=== PATIENT | male | born 1975 | race Caucasian/White ===

== ENCOUNTER 2017-09-12 18:31 | Inpatient (IN) | payer SELFPAY ==
[~2017-09-12] VITALS: Ht 154.4 cm; Wt 76.2 kg
[2017-09-12 19:23] LABS: BASOPHILS % 0.2 % (0.0-1.0); EOSINOPHILS # (AUTO) 0.1 (0.0-0.4); EOSINOPHILS % 0.5 % (0.0-6.0); HEMATOCRIT 43.1 % (38.2-49.6); HEMOGLOBIN 15.4 g/dL (14.0-18.0); LYMPHOCYTES # (AUTO) 2.1 (1.0-3.2); LYMPHOCYTES % 10.5 % (18.0-39.1); MEAN CORPUSCULAR HEMOGLOBIN 30.9 pg (28-32); MEAN CORPUSCULAR HGB CONC 35.7 g/dL (31-35); MEAN CORPUSCULAR VOLUME 86.5 fL (81-99); MONOCYTES # (AUTO) 1.5 (0.2-0.8); MONOCYTES % 7.4 % (4.4-11.3); NEUTROPHILS # (AUTO) 15.8 (2.1-6.9); NEUTROPHILS % 80.8 % (38.7-80.0); PLATELET COUNT 318 x10e3/uL (140-360); RED BLOOD COUNT 4.98 x10e6/uL (4.3-5.7); RED CELL DISTRIBUTION WIDTH 12.4 % (11.7-14.4)
[2017-09-12 19:24] LABS: BILIRUBIN,URINE 1+ (NEGATIVE); CLARITY,URINE CLEAR (CLEAR); COLOR,URINE YELLOW (YELLOW); KETONES,URINE NEGATIVE (NEGATIVE); LEUKOCYTE ESTERASE ,URINE TRACE (NEGATIVE); NITRITE,URINE NEGATIVE (NEGATIVE); PROTEIN,URINE DIPSTICK 1+ (NEGATIVE); URINE UROBILINOGEN 1 mg/dL (0.2 - 1)
[2017-09-12] MEDS ORDERED: DIATRIZOATE MEGL/DIATRIZOA SOD 30 ML BTL PO ONE (19:25)
[2017-09-12 19:34] LABS: INR 1.16; PROTHROMBIN TIME 13.9 seconds (11.9-14.5)
[2017-09-12 19:35] LABS: PARTIAL THROMBOPLASTIN TIME 26.9 seconds (23.8-35.5)
[2017-09-12 19:43] LABS: ALANINE AMINOTRANSFERASE 17 IU/L (0-55); ALKALINE PHOSPHATASE 72 IU/L (40-150); AMYLASE 51 U/L (25-125); ANION GAP 11.4 mmol/L (8-16); BLOOD UREA NITROGEN 11 mg/dL (7-26); BUN/CREATININE RATIO 14 (6-25); CARBON DIOXIDE 26 mmol/L (22-29); CHLORIDE 104 mmol/L (98-107); CREATININE, SERUM 0.77 mg/dL (0.72-1.25); EST GLOMERULAR FILTRATION RATE > 60 ML/MIN (60-); GLUCOSE 123 mg/dL (74-118); LIPASE 24 U/L (8-78); MAGNESIUM 2.2 MG/DL (1.3-2.1); POTASSIUM 3.4 mmol/L (3.5-5.1); SODIUM 138 mmol/L (136-145)
[2017-09-12 19:43] LABS: BACTERIA,URINE RARE /HPF; EPITHELIAL CELLS,URINE RARE /LPF; RBC,URINE 0-5 /HPF (0-5)
[2017-09-12 19:44] LABS: CALCIUM OXALATE CRYSTALS,UR MODERATE (FEW)
[2017-09-12] MEDS ORDERED: SODIUM CHLORIDE 0.9% 1000ML 1,000 ML IV STA (21:42)
[2017-09-12] MEDS ORDERED: ONDANSETRON HCL INJ 2 MG/ML VIAL IV STA (22:03)
[2017-09-12] MEDS ORDERED: MORPHINE SULFATE 2 MG/ML SYR IV STA (22:03)
[2017-09-12] MEDS ORDERED: SODIUM CHLORIDE 0.9% 50ML 50 ML ONE (22:29)
[2017-09-12] MEDS ORDERED: IOPAMIDOL 370 MG/ML 200 ML INFUS..BTL INJ ONE (22:29)
--- NOTE | 2017-09-12 22:53 | Diagnostic Imaging Report ---
EXAM: CT ABDOMEN/PELVIS W DATE: 09/12/2017 7:13 PM INDICATION: Abdominal pain, nausea and vomiting COMPARISON: None TECHNIQUE: The abdomen and pelvis were scanned using a multidetector helical scanner. Coronal and sagittal reformations were obtained. Routine protocol performed. IV Contrast: 100 ml Isovue 370 FINDINGS: LOWER THORAX: No consolidations LIVER/BILIARY: No masses. No ductal dilatation. GALLBLADDER: Unremarkable SPLEEN: Unremarkable PANCREAS: Unremarkable ADRENALS: No nodules KIDNEYS: Several subcentimeter right renal hypodensities are too small to accurately characterize. GI TRACT: Dilated appendix (1.6 cm with areas of absent/poor wall enhancement and marked surrounding inflammatory changes. No drainable collection or abscess. No bowel obstruction. VESSELS: Unremarkable PERITONEUM/RETROPERITONEUM: Mild pelvic in right lower quadrant free fluid. LYMPH NODES: No lymphadenopathy REPRODUCTIVE ORGANS/BLADDER: Unremarkable SOFT TISSUES: Unremarkable BONES: No suspicious bone lesions. IMPRESSION: Acute appendicitis, likely gangrenous/microperforated. No evidence of abscess. Discussed with Physician: MIGUEL JIN MD at 10:45 PM on 09/12/2017 Signed by: Dr Jania Baca MD on 09/12/2017 10:50 PM
[2017-09-12] MEDS: HYDROMORPHONE 1MG/1ML INJ IV PRN (23:15)
[2017-09-12] MEDS: SODIUM CHLORIDE 0.9% 1000ML 1,000 ML IV SCH (23:18)
[2017-09-12] MEDS: PIPER-TAZ 3.375 GM 50 ML IV SCH ×2 (23:18→23:43)
[2017-09-12] MEDS: METRONIDAZOLE 500MG/NS 100ML 100 ML IV SCH ×2 (23:38→23:43)
--- OUTSIDE RECORDS SUMMARY | 2017-09-12 23:38 | XMS REPORT ---
Author Author [facility] Address Unknown Phone Unavailable Care Team Providers Care Surface Water Manager Name Role Phone MIGUEL JIN Unavailable Unavailable Problems This patient has no known problems. Allergies, Adverse Reactions, Alerts This patient has no known allergies or adverse reactions. Medications This patient has no known medications. Results Test Description Test Time Test Comments Text Results Atomic Results Result Comments CT ABDOMEN/PELVIS W [place] [address] Patient Name: KATHARINE HIGGINBOTHAM MR #: [id number] : 1975 Age/Sex: 41/M Req #: [id number] Adm Physician: Ordered by: JAY BOYER SENIOR BACK END JAVA DEVELOPER Report #: [id number] Location: ER Room/Bed: Procedure: [id number] CT/CT ABDOMEN/PELVIS W Exam Date: Exam Time: REPORT STATUS: Signed EXAM: CT ABDOMEN/PELVIS W DATE: 09/12/2017 7: 13 PM INDICATION: Abdominal pain, nausea and vomiting COMPARISON: None TECHNIQUE: The abdomen and pelvis were scanned using a multidetector helical scanner. Coronal and sagittal reformations were obtained. Routine protocol performed. IV Contrast: 100 ml Isovue 370 FINDINGS: LOWER THORAX: No consolidations LIVER/BILIARY: No masses. No ductal dilatation. GALLBLADDER: Unremarkable SPLEEN: Unremarkable PANCREAS: Unremarkable ADRENALS: No nodules KIDNEYS: Several subcentimeter right renal hypodensities are too small to accurately characterize. GI TRACT: Dilated appendix ( 1.6 cm with areas of absent/poor wall enhancement and marked surrounding inflammatory changes. No drainable collection or abscess. No bowel obstruction. VESSELS: Unremarkable PERITONEUM/RETROPERITONEUM: Mild pelvic in right lower quadrant free fluid. LYMPH NODES: No lymphadenopathy REPRODUCTIVE ORGANS/BLADDER: Unremarkable SOFT TISSUES: Unremarkable BONES: No suspicious bone lesions. IMPRESSION: Acute appendicitis, likely gangrenous/microperforated. No evidence of abscess. Discussed with Physician: MIGUEL JIN MD at 10:45 PM on 09/12/2017 Signed by: Dr Ade Baca MD on 09/12/2017 10:50 PM Dictated By: ADE BACA MD 49 Transcribed By: SUSHANT on 09/12/172249 COPY TO: JAY BOYER NP
[2017-09-13] VITALS (7 sets, daily range): BP systolic 103–148; BP diastolic 65–94
[2017-09-13] MEDS: SODIUM CHLORIDE 0.9% 1000ML 1,000 ML IV SCH ×2 (01:18→15:37)
[2017-09-13] MEDS: HYDROMORPHONE 1MG/1ML INJ IV PRN ×5 (02:17→23:00)
[2017-09-13] MEDS: PIPER-TAZ 3.375 GM 50 ML IV SCH ×3 (05:43→18:14)
[2017-09-13] MEDS: METRONIDAZOLE 500MG/NS 100ML 100 ML IV SCH ×3 (06:00→17:59)
[2017-09-13] MEDS: ONDANSETRON HCL INJ 2 MG/ML VIAL IV PRN ×2 (08:00→16:25)
[2017-09-13] MEDS ORDERED: FENTANYL CITRATE/PF 100MCG/2 ML INJ ONE ×2 (14:09→17:52)
--- NOTE | 2017-09-13 14:33 | Operative Report ---
DATE OF PROCEDURE: September 13, 2017 PREOPERATIVE DIAGNOSIS: Acute appendicitis. POSTOPERATIVE DIAGNOSIS: Acute appendicitis. OPERATION PERFORMED: Laparoscopic appendectomy. ORCHESTRA MUSICIAN: DAMARIS Hurtado. ANESTHESIA: General. COMPLICATIONS: None. ESTIMATED BLOOD LOSS: Minimal. DESCRIPTION OF PROCEDURE: With the patient lying in bed in the supine position, under good general endotracheal anesthesia, the abdomen was prepped with Betadine solution and draped in the usual manner. A Veress needle was introduced into the umbilicus, and pneumoperitoneum was established without any difficulty. A 12-mm trocar was placed into the umbilicus, and a 10-mm video laparoscope was placed into the intraabdominal cavity. Under direct vision, a 5-mm trocar was placed in the suprapubic region and another 5-mm trocar was placed in the left lower quadrant. Video laparoscopy at this point revealed an acutely inflamed, nonperforated appendix that was stuck to the lateral gutter on the right side. There was some nonpurulent fluid in the pelvis which was all aspirated. The appendix was then mobilized off of the lateral gutter. The base of the appendix was then dissected, and the base of the appendix as it joined the cecum was divided with an application of the Endo LENNY stapler. The mesentery of the appendix was then divided with an application of the Endo LENNY vascular stapler. The appendix was placed in a pouch and removed without any difficulty. Video laparoscopy was again carried out. Surgical site was inspected. There was no bleeding. The whole area was then thoroughly irrigated, and all of the excess fluid was aspirated. The pneumoperitoneum was evacuated, and all the trocars were removed under direct vision. The midline fascia at the umbilicus was then closed with a zpxmby-yy-skceg of #0 Vicryl. All layers were infiltrated on the way out with a solution of 1/4 percent Marcaine. Subcutaneous tissue was approximated with 3-0 Vicryl, and the skin was closed with subcuticular 5-0 Vicryl. Benzoin, Steri-Strips and Band-Aids were applied. The sponge, lap and needle count was correct. Patient tolerated the procedure well and returned to the recovery room in stable condition. Job#: [id number]
[2017-09-13] MEDS ORDERED: LIDOCAINE HCL 2% LOCAL INJ 5 ML SDV VIAL INJ ONE (18:29)
[2017-09-13] MEDS ORDERED: KETOROLAC TROMETHAMINE 30 MG/ML VIAL ONE (18:29)
[2017-09-13] MEDS ORDERED: PROPOFOL IV EMULSION 10 MG/ML 20 ML VIAL ONE (18:29)
[2017-09-13] MEDS ORDERED: SEVOFLURANE INHAL SOLN 250 ML PEN BTL ONE (18:29)
[2017-09-13] MEDS ORDERED: DEXAMETHASONE SOD PHOS INJ 4 MG/ML VIAL ONE (18:29)
[2017-09-13] MEDS ORDERED: ONDANSETRON HCL INJ 2 MG/ML VIAL ONE (18:29)
[2017-09-13] MEDS ORDERED: ROCURONIUM BROMIDE 10 MG/ML 5ML VIAL ONE (18:29)
[2017-09-14] VITALS: BP 110/69
[2017-09-14] MEDS: SODIUM CHLORIDE 0.9% 1000ML 1,000 ML IV SCH ×3 (00:32→14:57)
[2017-09-14] MEDS: PIPER-TAZ 3.375 GM 50 ML IV SCH ×4 (00:32→17:10)
[2017-09-14] MEDS: METRONIDAZOLE 500MG/NS 100ML 100 ML IV SCH ×4 (01:19→17:10)
[2017-09-14 04:00] VITALS: BP 100/64
[2017-09-14] MEDS: ONDANSETRON HCL INJ 2 MG/ML VIAL IV PRN (04:37)
[2017-09-14] MEDS: HYDROMORPHONE 1MG/1ML INJ IV PRN (04:37)
[2017-09-14] MEDS: HYDROCODONE/APAP 7.5MG-325MG 1 EA TAB PO PRN ×4 (06:02→17:30)
[2017-09-14 06:03] LABS: BASOPHILS % 0.1 % (0.0-1.0); EOSINOPHILS % 0.2 % (0.0-6.0); HEMOGLOBIN 12.5 g/dL (14.0-18.0); LYMPHOCYTES # (AUTO) 2.1 (1.0-3.2); LYMPHOCYTES % 13.9 % (18.0-39.1); MEAN CORPUSCULAR HEMOGLOBIN 30.9 pg (28-32); MEAN CORPUSCULAR HGB CONC 34.7 g/dL (31-35); MEAN CORPUSCULAR VOLUME 88.9 fL (81-99); MONOCYTES # (AUTO) 1.2 (0.2-0.8); MONOCYTES % 8.2 % (4.4-11.3); NEUTROPHILS # (AUTO) 11.6 (2.1-6.9); PLATELET COUNT 272 x10e3/uL (140-360); RED BLOOD COUNT 4.05 x10e6/uL (4.3-5.7); RED CELL DISTRIBUTION WIDTH 12.4 % (11.7-14.4)
[2017-09-14 06:25] LABS: ANION GAP 12.1 mmol/L (8-16); BLOOD UREA NITROGEN 7 mg/dL (7-26); BUN/CREATININE RATIO 10 (6-25); CALCIUM 8.5 mg/dL (8.4-10.2); CARBON DIOXIDE 23 mmol/L (22-29); CHLORIDE 107 mmol/L (98-107); CREATININE, SERUM 0.71 mg/dL (0.72-1.25); EST GLOMERULAR FILTRATION RATE > 60 ML/MIN (60-); GLUCOSE 104 mg/dL (74-118); POTASSIUM 4.1 mmol/L (3.5-5.1); SODIUM 138 mmol/L (136-145)
[2017-09-14 07:54] VITALS: BP 125/86
[2017-09-14 08:00] VITALS: BP 125/86
[2017-09-14] MEDS: DOCUSATE SODIUM 100 MG CAP PO SCH ×2 (09:00→16:51)
[2017-09-14 12:00] VITALS: BP 104/70
[2017-09-14 16:00] VITALS: BP 115/81
[2017-09-14] MEDS ORDERED: TYLENOL WITH C1 EACH PO (19:16)
[2017-09-14] MEDS ORDERED: KEFLEX500 MG (19:17)
== END 2017-09-14 19:42 | disposition home or self-care (01) | DRG 343 ==
LOC: ER 18:31 → ERHOLD 23:35 → MED/SURG2 09-13 00:42
PROVIDERS: ADMIT Surgery; ATTEND Surgery
PROC: 0DTJ4ZZ Resection of Appendix, Percutaneous Endoscopic Approach (ICD-10-PCS; principal; 2017-09-13 14:30)
DX: K35.80 Unspecified acute appendicitis (principal); D72.820 Lymphocytosis (symptomatic)
CPT/HCPCS: 36415; 74177; 80048; 80053; 81001; 82150; 83690; 83735; 85025; 85610; 85730; 88304; 99284; C1766; J1100; J1170; J1885; J2001; J2270; J2405; J2543; J7030; Q9967

== ENCOUNTER 2020-02-16 10:48 | Emergency (ER) | payer SELFPAY ==
[~2020-02-16] VITALS: Ht 154.4 cm; Wt 72.6 kg
[~2020-02-16 10:48] MED LIST: KEFLEX500 MG; TYLENOL WITH C1 EACH PO
--- OUTSIDE RECORDS SUMMARY | 2020-02-16 11:27 | XMS REPORT | Continuity of Care Document ---
Author Author [facility] t Organization [facility] Address [address] [place] [address] Phone Unavailable Care Team Providers Care Steel Die Printer Name Role Phone NO, PCP PCP Unavailable Js JIN Attphys Unavailable Payers Payer Name Policy Type Policy Number Effective Date Expiration Date Juan Garcia Ppo [id number] 2006 00:00:00 [facility] Problems Condition Name Condition Details Condition Category Status Onset Date Resolution Date Last Treatment Date Treating Clinician Comments Source Appendicitis Appendicitis Problem Active [facility] Allergies, Adverse Reactions, Alerts Allergy Name Allergy Type Status Severity Reaction(s) Onset Date Inacti ve Date Treating Clinician Comments Source No Known Allergies DA Active U 2012-04-24 00:00:00 [facility] Medications Ordered Medication Name Filled Medication Name Start Date Stop Da te Current Medication? Ordering Clinician Indication Dosage Frequency Signature (SIG) Comments Components Source Acetaminophen With Codeine (Tylenol With Codeine #3 Ta blet) 1 Each Tablet Acetaminophen With Codeine (Tylenol With Codeine #3 Tablet) 1 Each Tablet Yes 300 Every 4 Hours as needed for Pain [facility] Cephalexin Monohydrate (Keflex) 500 Mg Capsule Cephale robert Monohydrate (Keflex) 500 Mg Capsule Yes Three Times A Day [facility] Procedures Procedure Date / Time Performed Performing Clinician Sourjonh e Laparoscopic appendectomy 2017-09-13 00:00:00 HEMANTH DE JESUS [facility] Computed tomography of abdomen and pelvis with contrast 2017 00:00:00 JAY BOYER [facility] Encounters Start Date/Time End Date/Time Encounter Type Admission Type [facility] Care Department Encounter ID Source 2017-09-12 23:35:00 2017-09-14 19:42:00 Discharged Inpatient ER MIGUEL JIN [facility] [id number] [facility] Results Test Description Test Time Test Comments Results Result Comments Source Sodium Level 2017-09-14 06:28:00 Test Item Sodium Level (test code = 2951-2) 138 136-145 [facility] CenterPotassium Gichr4089-53-57 06:28:00* Test Item Value Reference Range Interpretation Comments Potassium Level (test code = 2823-3) 4.1 3.5-5.1 [facility] CenterChloride Mztpu1190-34-20 06:28:00* Test Item Value Reference Range Interpretation Comments Chloride Level (test code = 2075-0) 107 98-107 [facility] CenterCarbon Dioxide Tlkif8314-69-99 06:28:00* Test Item Value Reference Range Interpretation Comments Carbon Dioxide Level (test code = 2028-9) 23 22-29 [facility] CenterAnion Hop0241-78-22 06:28:00* Test Item Value Reference Range Interpretation Comments Anion Gap (test code = 64952-1) 12.1 8-16 [facility] CenterBlood Urea Vqjrjwhx9186-36-72 06:28:00* Test Item Value Reference Range Interpretation Comments Blood Urea Nitrogen (test code = 3094-0) 7 7-26 [facility] CenterCreatinine2018-03-14 06:28:00* Test Item Value Reference Range Interpretation Comments Creatinine (test code = 2160-0) 0.71 0.72-1.25 L [facility] CenterBUN/Creatinine Hloci3525-13-77 06:28:00* Test Item Value Reference Range Interpretation Comments BUN/Creatinine Ratio (test code = 3097-3) 10 6-25 [facility] CenterEstimat Glomerular Filtration Rate 2017-09-14 06:28:00* Test Item Value Reference Range Interpretation Comments Estimat Glomerular Filtration Rate (test code = 04383-1) 60- >60 Ranges were taken from the National Kidney Disease Education Program and the [employer] literature.Reference ranges:60 or greater: Tbdryg46-23 ( for 3 consecutive months): Chronic kidney disease 15 or less: Kidney failureThe [facility] of [facility] M.[facility]. Anderson Cancer CenterGlucose Pltlk3497-07-27 06:28:00* Test Item Value Reference Range Interpretation Comments Glucose Level (test code = QEC0832) 104 74-118 [facility] CenterCalcium Migdn1532-12-92 06:28:00* Test Item Value Reference Range Interpretation Comments Calcium Level (test code = 13126-2) 8.5 8.4-10.2 [facility] CenterWhite Blood Cillr4664-75-28 06:10:00* Test Item Value Reference Range Interpretation Comments White Blood Count (test code = 6690-2) 15.09 4.8-10.8 H [facility] CenterRed Blood Pvabp5725-69-37 06:10:00* Test Item Value Reference Range Interpretation Comments Red Blood Count (test code = 789-8) 4.05 4.3-5.7 L [facility] CenterHemoglobin2018-03-14 06:10:00* Test Item Value Reference Range Interpretation Comments Hemoglobin (test code = 47114-4) 12.5 14.0-18.0 L [facility] CenterHematocrit2018-03-14 06:10:00* Test Item Value Reference Range Interpretation Comments Hematocrit (test code = 4544-3) 36.0 38.2-49.6 L [facility] CenterMean Corpuscular Obrpef1234-42-34 06:10:00* Test Item Value Reference Range Interpretation Comments Mean Corpuscular Volume (test code = 787-2) 88.9 81-99 [facility] CenterMean Corpuscular Hndvrtsizp9128-92-15 06:10:00* Test Item Value Reference Range Interpretation Comments Mean Corpuscular Hemoglobin (test code = 785-6) 30.9 28-32 [facility] CenterMean Corpuscular Hemoglobin Concent 2017-09-14 06:10:00* Test Item Value Reference Range Interpretation Comments Mean Corpuscular Hemoglobin Concent (test code = 786-4) 34.7 31-35 [facility] CenterRed Cell Distribution Ojttr2551-12-74 06:10:00* Test Item Value Reference Range Interpretation Comments Red Cell Distribution Width (test code = 46535-4) 12.4 11.7 -14.4 [facility] CenterPlatelet Wlqix3918-56-91 06:10:00* Test Item Value Reference Range Interpretation Comments Platelet Count (test code = 777-3) 272 140-360 [facility] CenterNeutrophils (%) (Auto)2017-09-14 06:10:00 * Test Item Value Reference Range Interpretation Comments Neutrophils (%) (Auto) (test code = 88773-7) 77.0 38.7-80.0 [facility] CenterLymphocytes (%) (Auto)2017-09-14 06:10:00 * Test Item Value Reference Range Interpretation Comments Lymphocytes (%) (Auto) (test code = 736-9) 13.9 18.0-39.1 L [facility] CenterMonocytes (%) (Auto)2017-09-14 06:10:00* Test Item Value Reference Range Interpretation Comments Monocytes (%) (Auto) (test code = 5905-5) 8.2 4.4-11.3 [facility] CenterEosinophils (%) (Auto)2017-09-14 06:10:00 * Test Item Value Reference Range Interpretation Comments Eosinophils (%) (Auto) (test code = 713-8) 0.2 0.0-6.0 [facility] CenterBasophils (%) (Auto)2017-09-14 06:10:00* Test Item Value Reference Range Interpretation Comments Basophils (%) (Auto) (test code = 706-2) 0.1 0.0-1.0 [facility] CenterIM GRANULOCYTES %2017-09-14 06:10:00* Test Item Value Reference Range Interpretation Comments IM GRANULOCYTES % (test code = IM GRANULOCYTES %) 0.6 0.0- 1.0 [facility] CenterNeutrophils # (Auto)2017-09-14 06:10:00* Test Item Value Reference Range Interpretation Comments Neutrophils # (Auto) (test code = 751-8) 11.6 2.1-6.9 H [facility] CenterLymphocytes # (Auto)2017-09-14 06:10:00* Test Item Value Reference Range Interpretation Comments Lymphocytes # (Auto) (test code = 74556-1) 2.1 1.0-3.2 [facility] CenterMonocytes # (Auto)2017-09-14 06:10:00* Test Item Value Reference Range Interpretation Comments Monocytes # (Auto) (test code = 742-7) 1.2 0.2-0.8 H [facility] CenterEosinophils # (Auto)2017-09-14 06:10:00* Test Item Value Reference Range Interpretation Comments Eosinophils # (Auto) (test code = 711-2) 0.0 0.0-0.4 [facility] CenterBasophils # (Auto)2017-09-14 06:10:00* Test Item Value Reference Range Interpretation Comments Basophils # (Auto) (test code = 704-7) 0.0 0.0-0.1 [facility] CenterAbsolute Immature Granulocyte (auto 2017-09-14 06:10:00* Test Item Value Reference Range Interpretation Comments Absolute Immature Granulocyte (auto (hugo t code = Absolute Immature Granulocyte (auto) 0.09 0-0.1 [facility] CenterUrine HMI2289-27-02 19:44:00* Test Item Value Reference Range Interpretation Comments Urine WBC (test code = 5821-4) 6-10 0-5 H [facility] CenterUrine EQM7658-31-90 19:44:00* Test Item Value Reference Range Interpretation Comments Urine RBC (test code = 32474-2) 0-5 0-5 [facility] CenterUrine Vsocjqrr9720-63-08 19:44:00* Test Item Value Reference Range Interpretation Comments Urine Bacteria (test code = 90374-5) RARE NONE [facility] CenterUrine Epithelial Ffway7228-48-58 19:44:00 * Test Item Value Reference Range Interpretation Comments Urine Epithelial Cells (test code = 18162-6) RARE NONE [facility] CenterUrine Calcium Oxalate Hetjpqot1970-37-12 19:44:00* Test Item Value Reference Range Interpretation Comments Urine Calcium Oxalate Crystals (test code = 5774-5) MODERATE FE W H [facility] CenterMagnesium Qimge9017-87-44 19:44:00* Test Item Value Reference Range Interpretation Comments Magnesium Level (test code = 43731-0) 2.2 1.3-2.1 H [facility] CenterTotal Ephtovczf5794-82-30 19:44:00* Test Item Value Reference Range Interpretation Comments Total Bilirubin (test code = 1975-2) 0.7 0.2-1.2 [facility] Cancer CenterAspartate Amino Transf (AST/SGOT) 2017-09-12 19:44:00* Test Item Value Reference Range Interpretation Comments Aspartate Amino Transf (AST/SGOT) (test code = Aspartate Amino Transf (AST/SGOT)) 12 5-34 [facility] CenterAlanine Aminotransferase (ALT/SGPT) 2017-09-12 19:44:00* Test Item Value Reference Range Interpretation Comments Alanine Aminotransferase (ALT/SGPT) (test code = 1742-6) 17 0-55 [facility] CenterTotal Greeubm8224-30-93 19:44:00* Test Item Value Reference Range Interpretation Comments Total Protein (test code = 2885-2) 7.9 6.5-8.1 [facility] CenterAlbumin2018-03-12 19:44:00* Test Item Value Reference Range Interpretation Comments Albumin (test code = 1751-7) 4.0 3.5-5.0 [facility] CenterGlobulin2018-03-12 19:44:00* Test Item Value Reference Range Interpretation Comments Globulin (test code = 44308-1) 3.9 2.3-3.5 H [facility] CenterAlbumin/Globulin Ljfsy7183-53-72 19:44:00 * Test Item Value Reference Range Interpretation Comments Albumin/Globulin Ratio (test code = 1759-0) 1.0 0.8-2.0 [facility] CenterAlkaline Aqwcalnlhsr4901-20-57 19:44:00* Test Item Value Reference Range Interpretation Comments Alkaline Phosphatase (test code = 6768-6) 72 40-150 [facility] CenterAmylase Adygn2816-75-76 19:44:00* Test Item Value Reference Range Interpretation Comments Amylase Level (test code = 1798-8) 51 25-125 [facility] CenterLipase2018-03-12 19:44:00* Test Item Value Reference Range Interpretation Comments Lipase (test code = 3040-3) 24 8-78 [facility] CenterProthrombin Odbw9843-18-09 19:35:00* Test Item Value Reference Range Interpretation Comments Prothrombin Time (test code = 5902-2) 13.9 11.9-14.5 [facility] CenterProthromb Time International Ratio 2017-09-12 19:35:00* Test Item Value Reference Range Interpretation Comments Prothromb Time International Ratio (test code = 6301-6) 1.16 Oral Anticoagulant Therapy INR Values:1. Low Intensity Therapy 1.5 - 2.02 . Moderate Intensity Therapy 2.0 - 3.03. High Intensity Therapy(1) 2.5 - 3. 54. High Intensity Therapy(2) 3.0 - 4.05. Panic Value INR > 5.0 [facility] Cancer CenterActivated Partial Thromboplast Time 2017-09-12 19:35:00* Test Item Value Reference Range Interpretation Comments Activated Partial Thromboplast Time (test code = 74120-2) 26.9 23.8-35.5 [facility] CenterUrine Dnhpf4351-66-93 19:24:00* Test Item Value Reference Range Interpretation Comments Urine Color (test code = 5778-6) YELLOW YELLOW [facility] CenterUrine Ffjirvu3975-86-69 19:24:00* Test Item Value Reference Range Interpretation Comments Urine Clarity (test code = 08774-9) CLEAR CLEAR [facility] CenterUrine Specific Whtmjjg5212-18-40 19:24:00 * Test Item Value Reference Range Interpretation Comments Urine Specific [place] (test code = 5811-5) 1.025 1.010-1.02 5 [facility] CenterUrine uL1873-82-10 19:24:00* Test Item Value Reference Range Interpretation Comments Urine pH (test code = 74625-0) 6 5-7 [facility] CenterUrine Leukocyte Dkxnjplz3640-29-34 19:24:00* Test Item Value Reference Range Interpretation Comments Urine Leukocyte Esterase (test code = 5799-2) TRACE NEGATIVE H [facility] CenterUrine Aekvepy1457-87-86 19:24:00* Test Item Value Reference Range Interpretation Comments Urine Nitrite (test code = 17249-5) NEGATIVE NEGATIVE [facility] Eqyffox9983-10-86 19:24:00* Test Item Value Reference Range Interpretation Comments Urine Protein (test code = 5804-0) 1+ NEGATIVE H [facility] Glucose (UA)2017-09-12 19:24:00* Test Item Value Reference Range Interpretation Comments Urine Glucose (UA) (test code = 2349-9) NEGATIVE NEGATIVE [facility] CenterUrine Srgywgm0054-76-34 19:24:00* Test Item Value Reference Range Interpretation Comments Urine Ketones (test code = 38976-9) NEGATIVE NEGATIVE [facility] CenterUrine Syjljpeyheza7704-16-37 19:24:00* Test Item Value Reference Range Interpretation Comments Urine Urobilinogen (test code = 06738-6) 1 0.2-1 [facility] CenterUrine Tfeoqotrs3611-77-84 19:24:00* Test Item Value Reference Range Interpretation Comments Urine Bilirubin (test code = 1978-6) 1+ NEGATIVE H Confirmatory test currently unavailable. False positive results may occur.[facility] Tqtof3974-51-42 19:24:00* Test Item Value Reference Range Interpretation Comments Urine Blood (test code = 68170-9) 1+ NEGATIVE H [facility] CenterCT ABDOMEN/PELVIS W [place] [address] Patient Name: KATHARINE HIGGINBOTHAM MR #: [id number] : 1975 Age/Sex: 41/M Req #: [id number] Adm Physician: Ordered by: JAY BOYER NP Report #: [id number] Location: ER Room/Bed: Procedure: [id number] CT/CT ABDOMEN/PELVIS W Exam Date: Exam Time: REPORT STATUS: Signed EXA M: CT ABDOMEN/PELVIS W DATE: 09/12/2017 7:13 PM INDICATION: Abdominal pain , nausea and vomiting COMPARISON: None TECHNIQUE: The abdomen and pelvis w ere scanned using a multidetector helical scanner. Coronal and sagittal reform ations were obtained. Routine protocol performed. IV Contrast: 100 ml Isovue 370 FINDINGS: LOWER THORAX: No consolidations LIVER/BILIARY: No ma sses. No ductal dilatation. GALLBLADDER: Unremarkable SPLEEN: Unremarkab le PANCREAS: Unremarkable ADRENALS: No nodules KIDNEYS: Several subcent imeter right renal hypodensities are too small to accurately characterize. GI TRACT: Dilated appendix (1.6 cm with areas of absent/poor wall enhancement and marked surrounding inflammatory changes. No drainable collection or absc ess. No bowel obstruction. VESSELS: Unremarkable PERITONEUM/RETROPERITONE UM: Mild pelvic in right lower quadrant free fluid. LYMPH NODES: No lymphadeno lenin REPRODUCTIVE ORGANS/BLADDER: Unremarkable SOFT TISSUES: Unremark able BONES: No suspicious bone lesions. IMPRESSION: Acute appendicitis, likely gangrenous/microperforated. No evidence of abscess. Discussed with Physician: MIGUEL JIN MD at 10:45 PM on 09/12/2017 Signed by: Dr Ade Baca MD on 09/12/2017 10:50 PM Dictated By: ADE BACA MD Electr onically Signed By: ADE BACA MD on 09/12/17 9254 Transcribed By: SUSHANT on 09/12/17 3155 COPY TO: JAY BOYER NP
[2020-02-16] MEDS ORDERED: KETOROLAC TROMETHAMINE 60 MG/2 ML VIAL IM ONE (11:45)
[2020-02-16] MEDS ORDERED: HYDROCODONE/APAP 7.5MG-325MG 1 EA TAB PO ONE (11:45)
[2020-02-16] MEDS ORDERED: DIAZEPAM 5 MG TAB PO ONE (11:45)
--- NOTE | 2020-02-16 13:28 | Diagnostic Imaging Report ---
Lumbar Spine Radiographs: 3 views HISTORY: Low back pain COMPARISON: None available. DISCUSSION: Alignment: Normal. Vertebral bodies: Normal height. Intervertebral disc spaces: well maintained. Facets: Mild lower lumbar facet arthrosis. Prevertebral soft tissues: Normal. Others: Normal bowel gas pattern of the partially imaged abdomen. 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 No fracture or malalignment. Signed by: Sundar Car MD on 02/16/2020 1:25 PM
--- NOTE | 2020-02-16 15:10 | Emergency Department Note ---
History of Present Illnes History of Present Illness Chief Complaint: Back Pain History of Present Illness This is a 44 year old male C/O OF PAIN RIGHT LOWER MID BACK. NO LOSS OF STOOL OR URINE FROM STANDING POSITION HE WAS STRETCHING, AND REACHING FOR LEFT ANKLE. Historian: Patient Arrival Mode: Car Additional Treatment HOUSEKEEPER CLEANING COOKING: NONE Head Grower Required: No Onset (how long ago): hour(s) Location: LOWER BACK Quality: PAIN Radiation: Reports non-radiation Severity: severe Onset quality: sudden Timing of current episode: constant Chronicity: new Context: Denies recent illness Relieving factors: none Exacerbating factors: none Associated symptoms: Reports denies other symptoms Past Medical/Family History Physician Review I have reviewed the patient's past medical and family history. Any updates have been documented here. Past Medical History Recent Fever: No Clinical Suspicion of Infectio: No New/Unexplained Change in Ment: No Past Medical History: Depression Past Surgical History: Appendectomy Other Surgery: RIGHT WRIST, GANGLION CYST Social History Smoking Cessation: Current every day smoker Counseling Performed: Yes Alcohol Use: None Any Illegal Drug Use: Yes (MARIJUANA) Physically hurt or threatened: No Other Last Tetanus: UTD Any Pre-Existing Lines (PICC,: No Review of Systems Review of Systems Constitutional: Reports no symptoms EENTM: Reports no symptoms Cardiovascular: Reports no symptoms Respiratory: Reports no symptoms Gastrointestinal: Reports no symptoms Genitourinary: Reports no symptoms Musculoskeletal: Reports as per HPI Integumentary: Reports no symptoms Neurological: Reports no symptoms Psychological: Reports no symptoms Endocrine: Reports no symptoms Hematological/Lymphatic: Reports no symptoms Physical Exam Related Data Allergies: Coded Allergies: No Known Allergies (Unverified , 09/12/17) Triage Vital Signs Vital Signs Date Time Temp Pulse Resp B/P (MAP) Pulse Ox O2 Delivery O2 Flow Rate FiO2 02/16/20 10:54 98.2 72 18 128/74 99 Room Air Vital signs reviewed: Yes Physical Exam CONSTITUTIONAL Constitutional: Present well-developed, Present well-nourished HENT HENT: Present normocephalic, Present atraumatic, Present oropharynx clear/moist, Present nose normal HENT L/R: Present left ext ear normal, Present right ext ear normal EYES Eyes: Reports PERRL, Reports conjunctivae normal NECK Neck: Present ROM normal PULMONARY Pulmonary: Present effort normal, Present breath sounds normal CARDIOVASCULAR Cardiovascular: Present regular rhythm, Present heart sounds normal, Present capillary refill normal, Present normal rate GASTROINTESTINAL Abdominal: Present soft, Present nontender, Present bowel sounds normal GENITOURINARY Genitourinary: Present exam deferred SKIN Skin: Present warm, Present dry MUSCULOSKELETAL Musculoskeletal: Present ROM normal, Present other (POSITIVE SLR BILAT ~40 DEGREES, NL MOTOR/SENS, NL DTR'S) NEUROLOGICAL Neurological: Present alert, Present oriented x 3, Present no gross motor or sensory deficits; Absent cranial nerve deficit, Absent sensory deficit, Absent weakness PSYCHOLOGICAL Psychological: Present mood/affect normal, Present judgement normal Results Imaging Imaging results reviewed: Yes Assessment & Plan Medical Decision Making MDM CHECK XRAYS R/O OCCULT FX, NO NEURO DEFICIT Reassessment Reassessment DC HOME, IMPROVED WITH MEDS, F/U DR Ilia PINEDA (ORTHO) Assessment & Plan Final Impression: (1) Back pain Depart Disposition: HOME, SELF-CARE Last Vital Signs Date Time Temp Pulse Resp B/P (MAP) Pulse Ox O2 Delivery O2 Flow Rate FiO2 02/16/20 14:51 98.3 78 18 129/90 99 Room Air Home Meds Reported Medications Cephalexin Monohydrate (KEFLEX) 500 Mg Capsule, MG TID, #15 09/14/17 Acetaminophen With Codeine (TYLENOL WITH CODEINE #3 TABLET) 1 Each Tablet, 300 MG PO Q4HR PRN for PAIN, #20 TAB 09/14/17 Medications in the ED Ketorolac Tromethamine 60 mg ONCE ONCE IM Last administered on 02/16/20 11:50; Admin Dose 60 MG; Start 02/16/20 at 11:45; Stop 02/16/20 at 11:46; Status DC Acetaminophen/ Hydrocodone Bitart 1 ea NOW ONCE PO Last administered on 02/16/20at 11:50; Admin Dose 1 EA; Start 02/16/20 at 11:45; Stop 02/16/20 at 11:46; Status DC Diazepam 5 mg NOW ONCE PO Last administered on 02/16/20 11:50; Admin Dose 5 MG; Start 02/16/20 at 11:45; Stop 02/16/20 at 11:46; Status DC MIGUEL JIN MD Feb 16, 2020 15:10
== END 2020-02-16 15:14 | disposition home or self-care (01) ==
LOC: ER 11:25
DX: M54.5 Low back pain (principal); X50.0XXA Overexertion from strenuous movement or load, initial encounter; Y92.008 Other place in unspecified non-institutional (private) residence as the place of occurrence of the external cause; F32.9 Major depressive disorder, single episode, unspecified; F17.210 Nicotine dependence, cigarettes, uncomplicated
CPT/HCPCS: 72110; 99283; J1885